=== PATIENT | male | born 1985 | race Caucasian/White ===

== ENCOUNTER 2018-03-28 16:28 | Emergency (ER) | payer SELFPAY ==
[2018-03-28] MEDS: DOXYCYCLINE 100 MG TAB PO (19:33)
[2018-03-28] MEDS: ACETAMINOPHEN 325 MG TAB PO (19:33)
[2018-03-28] MEDS: LIDOCAINE 1% (MPF) 30 ML INJ INJ (19:34)
== END 2018-03-28 19:50 | disposition home or self-care (01) ==
LOC: FTE 16:28
DX: L02.11 Cutaneous abscess of neck (principal); L72.3 Sebaceous cyst
CPT/HCPCS: 10060; 99283-25